=== PATIENT | male | born 1930 | race Caucasian/White ===

== ENCOUNTER 2018-04-14 12:04 | Emergency (ER) | payer OTHER ==
[~2018-04-14] VITALS: Ht 182.9 cm; Wt 88.0 kg
--- NOTE | ~2018-04-14 | EKG ---
[place], [place] ELECTROCARDIOGRAM REPORT NAME: SAUL NAJERA UNIT #: [id number] ROOM: DOCTOR: EPIPHANY DRAFT REPORT BIRTHDATE: [birth year] [facility] Test Date: 2018-04-14 Test Time: 12:59:06 Pat Name: SAUL NAJERA Department: Room: Gender: Sociology Faculty Member: Rosi Hale : 1930 Requested By: LEBRON MORA Order Number: [id number] Reading MD: John Benjamin MD Measurements Intervals [place] Rate: 78 P: 0 NM: 178 QRS: 3 QRSD: 180 T: QT: 493 QTc: 562 Interpretive Statements Sinus rhythm Ventricular premature complex Complete RBBB Right bundle branch block Electronically Signed On 04-18-2018 7:20:48 PST by John Benjamin MD CM:EKGRPT:ELECTROCARDIOGRAM REPORT [id number] LEBRON GREGORY DRAFT REPORT LEBRON MORA DO
[~2018-04-14 12:04] MED LIST: ASPIR 8181 MG PO; BUMEX2.5 MG/10 PO; CARDIZEM CD120 MG PO; CELEBREX100 MG PO; CILOSTAZOL100 MG PO; CIPRO500 MG PO; COREG3.125 MG PO; COUMADIN6 M2 PO; Catapres-Tts 10.1 MG PO; DUONEB 3 MG/3 ML3 M1 NEB; FLAGYL500 MG PO; FLOMAX0.4 MG PO; KLOR-CON M1010 ME1 PO; LASIX40 MG PO; LISINOPRIL2.5 MG PO; MICRO-K10 MEQ PO; Oxycodone/Apap1 TA1 PO; SIMVASTATIN10 MG PO; SYMBICORT1 AER INH; SYNTHROID,LEV112 MCG PO; SYNTHROID0.025 MG PO; SYNTHROID0.137 MG PO; TAMSULOSIN HCL0.4 MG PO; TOPROL XL25 MG PO; VITAMIN D2400 IU PO; VITAMIN D50000 IU PO; WARFARIN4 MG PO
[2018-04-14] MEDS ORDERED: TAMSULOSIN HCL0.4 MG PO (12:16)
[2018-04-14] MEDS ORDERED: LEVOTHYROXINE112 MCG PO (12:16)
[2018-04-14] MEDS ORDERED: KLOR-CON M2020 ME1 PO (12:17)
[2018-04-14] MEDS ORDERED: CILOSTAZOL100 MG PO (12:17)
[2018-04-14] MEDS ORDERED: IMDUR SA30 MG PO (12:17)
[2018-04-14] MEDS ORDERED: ELIQUIS5 M1 PO (12:18)
[2018-04-14] MEDS ORDERED: FUROSEMIDE40 MG PO (12:18)
[2018-04-14] MEDS ORDERED: Lopressor25 MG PO (12:19)
[2018-04-14] MEDS ORDERED: SIMVASTATIN10 MG PO (12:19)
[2018-04-14 13:10] LABS: ALBUMIN 3.5 gm/dl (3.1-4.5); CREATININE 2.16 mg/dL (0.70-1.30); POTASSIUM 4.8 mmol/L (3.5-5.1); TOTAL PROTEIN 7.2 gm/dL (6.4-8.2); TROPONIN I 0.038 ng/ml (<0.045)
[2018-04-14 13:10] LABS: BASO # 0.1 10*3/uL (0.0-0.1); BASO % 1.5 % (0.0-1.0); EOS # 0.2 10*3/uL (0.0-0.4); EOS % 3.1 % (1.0-4.0); HEMATOCRIT 42.5 % (42.0-52.0); HEMOGLOBIN 13.3 g/dl (14.0-18.0); LYMPH # 0.8 10*3/uL (1.3-4.4); LYMPH % 16.1 % (27.0-41.0); MEAN CELL VOLUME 97.9 fl (80.0-94.0); MEAN CORPUSCULAR HGB 30.6 pg (27.0-31.0); MEAN CORPUSCULAR HGB CONC 31.3 g/dl (33.0-37.0); MEAN PLATELET VOLUME 10.5 fl (9.6-12.3); MONO # 0.5 10*3/uL (0.1-1.0); MONO % 10.2 % (3.0-9.0); NEUT # 3.3 10*3/uL (2.3-7.9); NEUT % 68.7 % (47.0-73.0); PLATELET COUNT AUTOMATED 139 10*3/uL (130-400); RED BLOOD COUNT 4.34 10*6/uL (4.50-5.90); RED CELL DISTRI WIDTH 17.9 % (0-14.5); WHITE BLOOD COUNT 4.8 10*3/uL (4.8-10.8)
== END 2018-04-14 15:20 | disposition home or self-care (01) ==
LOC: ED 12:04
PROVIDERS: Internal Medicine Nephrology
DX: R60.0 Localized edema (principal); I11.0 Hypertensive heart disease with heart failure; I50.9 Heart failure, unspecified; E03.9 Hypothyroidism, unspecified; I25.2 Old myocardial infarction; Z79.899 Other long term (current) drug therapy; Z95.1 Presence of aortocoronary bypass graft